=== PATIENT | male | born 1965 | race Caucasian/White ===

== ENCOUNTER → 2017-05-26 | Outpatient (CLI) | payer OTHER ==
[2017-05-26 09:07] LABS: Basophils # (A) 0.1 k/uL (0-0.2); Basophils % (A) 1 %; Eosinophils # (A) 0.1 k/uL (0-0.7); Eosinophils % (A) 1 %; HCT 50.1 % (39.0-53.0); Lymphocytes # (A) 3.6 k/uL (1.0-4.8); Lymphocytes % (A) 42 %; MCH 28.2 pg (25.0-35.0); MCHC 31.9 g/dL (31.0-37.0); MCV 88.4 fL (80.0-100.0); Mean Platelet Volume 6.5; Monocytes # (A) 0.4 k/uL (0-1.0); Monocytes % (A) 5 %; Neutrophils # (A) 4.1 k/uL (1.3-7.7); Neutrophils % (A) 48 %; Platelet Count 244 k/uL (150-450); RBC 5.67 m/uL (4.30-5.90); RDW 11.8 % (11.5-15.5); WBC 8.5 k/uL (3.8-10.6)
[2017-05-26 09:23] LABS: ALT 34 U/L (21-72); AST 25 U/L (17-59); Albumin 4.3 g/dL (3.5-5.0); Alkaline Phosphatase 78 U/L (38-126); Anion Gap 10 mmol/L; Blood Urea Nitrogen 15 mg/dL (9-20); Calcium 9.6 mg/dL (8.4-10.2); Carbon Dioxide 30 mmol/L (22-30); Chloride 102 mmol/L (98-107); Cholesterol 185 mg/dL (<200); Glucose 87 mg/dL (74-99); HDL Cholesterol 53 mg/dL (40-60); LDL Cholesterol,Calculated 108 mg/dL (0-99); Potassium 5.1 mmol/L (3.5-5.1); Sodium 142 mmol/L (137-145); Total Bilirubin 0.4 mg/dL (0.2-1.3); Total Protein 7.1 g/dL (6.3-8.2); Triglycerides 119 mg/dL (<150)
[2017-05-26 09:37] LABS: Amorphous Sediment,Urine Rare /hpf; Appearance,Urine Cloudy (Clear); Bilirubin,Urine Negative (Negative); Blood,Urine Negative (Negative); Color,Urine Yellow; Glucose,Urine (UA) Negative (Negative); Ketones,Urine Negative (Negative); Leukocyte Esterase,Urine Negative (Negative); Mucus,Urine Rare /hpf; Nitrite,Urine Negative (Negative); PH, Urine 7.5 (5.0-8.0); Protein,Urine 2+ (Negative); RBC,Urine 6 /hpf (0-5); Specific Gravity,Urine 1.021 (1.001-1.035); Sperm,Urine Many /hpf; Urobilinogen,Urine <2.0 mg/dL (<2.0)
[2017-05-26 09:52] LABS: Prostate Specific Antigen 0.84 ng/mL (0.00-4.00)
== END | disposition home or self-care (01) ==
LOC: LABWHC1 08:25
PROVIDERS: ATTEND Internal Medicine
DX: I10 Essential (primary) hypertension (principal); Z12.5 Encounter for screening for malignant neoplasm of prostate
CPT/HCPCS: 36415; 80053; 80061; 81001; 84153; 85025

== ENCOUNTER 2020-11-12 14:34 | Emergency (ER) | payer OTHER ==
--- NOTE | 2020-11-12 14:47 | ED ---
General Adult HPI - General Source: patient, RN notes reviewed Mode of arrival: ambulatory Limitations: no limitations <Joe Blackmon - Last Filed: 11/12/20 14:46> - History of Present Illness -: days(s) (2) Severity scale (1-10): 0 Worsens with: movement Associated Symptoms: diaphoresis <Mina Ash - Last Filed: 11/12/20 20:01> - General Stated complaint: dizziness, SOB Time Seen by Provider: 11/12/20 14:46 - History of Present Illness Initial comments: This is a 55-year-old male presents emergency Department chief complaint of dizziness. Patient states the dizziness has been on for over a year but since be worsening and more symptomatic. Patient states that his been having some sweating episodes along with some shortness of breath. Patient states that this is new. Patient has pain in her seatbelt was over his chest but does not believe this chest pain. Denies any nausea vomiting currently. Patient states that his of asthma. For evaluation by his PCP. (Joe Blackmon) 55-year-old male gentleman alert and oriented 4, presents to the emergency room with intermittent dizziness over the past year and shortness of breath for the past couple of days. Patient states that when he goes from kneeling to standing he gets dizzy typically lasts about a minute then resolves. States over the past couple of days he feels very sweaty at times and gets short of breath with exertion. Denies any fevers or sick exposures. He states that he began feeling this way in May when he had Covid. He denies any chest pains. He states that he is supposed to be taking medication for anger management prescribed by Dr Shetty but he doesn't believe he needs it anymore. (Mina Ash) - Related Data Allergies Allergy/AdvReac Type Severity Reaction Status Date / Time diphenhydramine Allergy Unknown Verified 11/12/20 14:49 [From Benadryl] Review of Systems ROS Other: All systems not noted in ROS Statement are negative. <Joe Blackmon - Last Filed: 11/12/20 14:46> ROS Other: All systems not noted in ROS Statement are negative. <Mina Ash - Last Filed: 11/12/20 20:01> ROS Statement: Those systems with pertinent positive or pertinent negative responses have been documented in the HPI. General Exam General appearance: alert, in no apparent distress Head exam: Present: atraumatic, normocephalic, normal inspection Eye exam: Present: normal appearance, PERRL, EOMI. Absent: scleral icterus, conjunctival injection, periorbital swelling ENT exam: Present: normal exam, mucous membranes moist Neck exam: Present: normal inspection, full ROM. Absent: tenderness, meningismus, lymphadenopathy Respiratory exam: Present: normal lung sounds bilaterally. Absent: respiratory distress, wheezes, rales, rhonchi, stridor, chest wall tenderness, accessory muscle use, decreased breath sounds Cardiovascular Exam: Present: regular rate, normal rhythm, normal heart sounds. Absent: systolic murmur, diastolic murmur, rubs, gallop, clicks, JVD GI/Abdominal exam: Present: soft, normal bowel sounds. Absent: distended, tenderness, guarding, rebound, rigid Extremities exam: Present: normal inspection, full ROM, normal capillary refill. Absent: tenderness, pedal edema, joint swelling, calf tenderness Back exam: Present: normal inspection, full ROM. Absent: tenderness, CVA tenderness (R), CVA tenderness (L), muscle spasm, paraspinal tenderness, vertebral tenderness, rash noted Neurological exam: Present: alert, oriented X3, CN II-XII intact Psychiatric exam: Present: normal affect, normal mood Skin exam: Present: warm, dry, intact, normal color. Absent: rash, cyanosis, diaphoretic, erythema, petechiae, pallor, mottled <Mina Ash - Last Filed: 11/12/20 20:01> Course Vital Signs 11/12/20 11/12/20 14:44 17:21 Temperature 98.2 F 98.5 F Pulse Rate 91 72 Respiratory 18 16 Rate Blood Pressure 141/90 144/98 O2 Sat by Pulse 96 98 Oximetry EKG Findings - EKG Results: EKG: sinus rhythm (Ventricular rate of 80, OK interval 0.136, QRS of 0.86, QTC of 0.394) <Mina Ash - Last Filed: 11/12/20 20:01> Medical Decision Making - Lab Data Result diagrams: 11/12/20 14:50 11/12/20 14:50 <Mina Ash Last Filed: 11/12/20 20:01> - Medical Decision Making Patient complaining of dizziness and shortness of breath but denies any fevers, chest pain or cough. CXR shows no pneumothorax, pleural effusion or focal pneumonia. There is mild hyperinflation possible COPD. There is no leukocytosis. d-dimer is negative at 0.41, his troponin is negative at 0.012 and his EKG is normal sinus rhythm with no ST elevation. He does state that his dizziness has been ongoing for a year and worse with position changes. He was instructed to return if any worsening symptoms or chest pain. Patient is agreeable to being discharged and following up with his primary care doctor. Case was discussed with Dr. Ward ([facility]) - Lab Data Lab Results 11/12/20 11/12/20 11/12/20 Range/Units 14:50 14:50 14:50 WBC 8.6 (3.8-10.6) k/uL RBC 5.43 (4.30-5.90) m/uL Hgb 16.0 (13.0-17.5) gm/dL Hct 48.4 (39.0-53.0) % MCV 89.1 (80.0-100.0) fL MCH 29.4 (25.0-35.0) pg MCHC 33.0 (31.0-37.0) g/dL RDW 12.9 (11.5-15.5) % Plt Count 227 (150-450) k/uL MPV 7.5 Neutrophils % 52 % Lymphocytes % 39 % Monocytes % 5 % Eosinophils % 1 % Basophils % 1 % Neutrophils # 4.5 (1.3-7.7) k/uL Lymphocytes # 3.3 (1.0-4.8) k/uL Monocytes # 0.4 (0-1.0) k/uL Eosinophils # 0.1 (0-0.7) k/uL Basophils # 0.1 (0-0.2) k/uL D-Dimer 0.41 (<0.60) mg/L FEU Sodium 138 (137-145) mmol/L Potassium 4.2 (3.5-5.1) mmol/L Chloride 105 (98-107) mmol/L Carbon Dioxide 24 (22-30) mmol/L Anion Gap 9 mmol/L BUN 13 (9-20) mg/dL Creatinine 1.00 (0.66-1.25) mg/dL Est GFR (CKD-EPI)AfAm >90 (>60 ml/min/1.73 sqM) Est GFR (CKD-EPI)NonAf 85 (>60 ml/min/1.73 sqM) Glucose 109 H (74-99) mg/dL Calcium 9.0 (8.4-10.2) mg/dL Magnesium 2.1 (1.6-2.3) mg/dL Total Bilirubin 0.2 (0.2-1.3) mg/dL AST 25 (17-59) U/L ALT 18 (4-49) U/L Alkaline Phosphatase 72 (38-126) U/L Troponin I (0.000-0.034) ng/mL Total Protein 6.3 (6.3-8.2) g/dL Albumin 3.9 (3.5-5.0) g/dL Urine Color Urine Appearance (Clear) Urine pH (5.0-8.0) Ur Specific Howard (1.001-1.035) Urine Protein (Negative) Urine Glucose (UA) (Negative) Urine Ketones (Negative) Urine Blood (Negative) Urine Nitrite (Negative) Urine Bilirubin (Negative) Urine Urobilinogen (<2.0) mg/dL Ur Leukocyte Esterase (Negative) Urine RBC (0-5) /hpf Urine WBC (0-5) /hpf 11/12/20 11/12/20 Range/Units 14:50 15:32 WBC (3.8-10.6) k/uL RBC (4.30-5.90) m/uL Hgb (13.0-17.5) gm/dL Hct (39.0-53.0) % MCV (80.0-100.0) fL MCH (25.0-35.0) pg MCHC (31.0-37.0) g/dL RDW (11.5-15.5) % Plt Count (150-450) k/uL MPV Neutrophils % % Lymphocytes % % Monocytes % % Eosinophils % % Basophils % % Neutrophils # (1.3-7.7) k/uL Lymphocytes # (1.0-4.8) k/uL Monocytes # (0-1.0) k/uL Eosinophils # (0-0.7) k/uL Basophils # (0-0.2) k/uL D-Dimer (<0.60) mg/L FEU Sodium (137-145) mmol/L Potassium (3.5-5.1) mmol/L Chloride (98-107) mmol/L Carbon Dioxide (22-30) mmol/L Anion Gap mmol/L BUN (9-20) mg/dL Creatinine (0.66-1.25) mg/dL Est GFR (CKD-EPI)AfAm (>60 ml/min/1.73 sqM) Est GFR (CKD-EPI)NonAf (>60 ml/min/1.73 sqM) Glucose (74-99) mg/dL Calcium (8.4-10.2) mg/dL Magnesium (1.6-2.3) mg/dL Total Bilirubin (0.2-1.3) mg/dL AST (17-59) U/L ALT (4-49) U/L Alkaline Phosphatase (38-126) U/L Troponin I <0.012 (0.000-0.034) ng/mL Total Protein (6.3-8.2) g/dL Albumin (3.5-5.0) g/dL Urine Color Light Yellow Urine Appearance Clear (Clear) Urine pH 6.5 (5.0-8.0) Ur Specific Howard 1.008 (1.001-1.035) Urine Protein Negative (Negative) Urine Glucose (UA) Negative (Negative) Urine Ketones Negative (Negative) Urine Blood Trace H (Negative) Urine Nitrite Negative (Negative) Urine Bilirubin Negative (Negative) Urine Urobilinogen <2.0 (<2.0) mg/dL Ur Leukocyte Esterase Negative (Negative) Urine RBC 2 (0-5) /hpf Urine WBC <1 (0-5) /hpf Disposition <Joe Blackmon - Last Filed: 11/12/20 14:46> Is patient prescribed a controlled substance at d/c from ED?: No Time of Disposition: 17:07 <Mina Ash - Last Filed: 11/12/20 20:01> Clinical Impression: Postural dizziness Clinical Impression: (Ruled Out): Light-headed feeling Disposition: HOME SELF-CARE Condition: Good Instructions (If sedation given, give patient instructions): Benign Paroxysmal Positional Vertigo (ED) Additional Instructions: Keep your appointment with your primary care doctor on November 22. Return to the emergency room with any increasing shortness of breath or chest pain. Referrals: April Olivera MD [Primary Care Provider] - 1-2 days
[2020-11-12 15:04] LABS: Basophils # (A) 0.1 k/uL (0-0.2); Basophils % (A) 1 %; Eosinophils # (A) 0.1 k/uL (0-0.7); Eosinophils % (A) 1 %; HCT 48.4 % (39.0-53.0); Lymphocytes # (A) 3.3 k/uL (1.0-4.8); Lymphocytes % (A) 39 %; MCH 29.4 pg (25.0-35.0); MCV 89.1 fL (80.0-100.0); Mean Platelet Volume 7.5; Monocytes # (A) 0.4 k/uL (0-1.0); Monocytes % (A) 5 %; Neutrophils # (A) 4.5 k/uL (1.3-7.7); Neutrophils % (A) 52 %; Platelet Count 227 k/uL (150-450); RBC 5.43 m/uL (4.30-5.90); RDW 12.9 % (11.5-15.5); WBC 8.6 k/uL (3.8-10.6)
[2020-11-12] MEDS ORDERED: SODIUM CHLORIDE 0.9% 500 ML 500 ML IV STA (15:10)
[2020-11-12 15:14] LABS: ALT 18 U/L (4-49); AST 25 U/L (17-59); African American GFR (CKD) >90 (>60 ml/min/1.73 sqM); Albumin 3.9 g/dL (3.5-5.0); Alkaline Phosphatase 72 U/L (38-126); Anion Gap 9 mmol/L; Blood Urea Nitrogen 13 mg/dL (9-20); Carbon Dioxide 24 mmol/L (22-30); Chloride 105 mmol/L (98-107); Glucose 109 mg/dL (74-99); Magnesium 2.1 mg/dL (1.6-2.3); Non-African American GFR(CKD) 85 (>60 ml/min/1.73 sqM); Potassium 4.2 mmol/L (3.5-5.1); Sodium 138 mmol/L (137-145); Total Bilirubin 0.2 mg/dL (0.2-1.3); Total Protein 6.3 g/dL (6.3-8.2)
[2020-11-12 15:56] LABS: Appearance,Urine Clear (Clear); Bilirubin,Urine Negative (Negative); Blood,Urine Trace (Negative); Color,Urine Light Yellow; Glucose,Urine (UA) Negative (Negative); Ketones,Urine Negative (Negative); Leukocyte Esterase,Urine Negative (Negative); Nitrite,Urine Negative (Negative); PH, Urine 6.5 (5.0-8.0); Protein,Urine Negative (Negative); RBC,Urine 2 /hpf (0-5); Specific Gravity,Urine 1.008 (1.001-1.035); Urobilinogen,Urine <2.0 mg/dL (<2.0); WBC,Urine <1 /hpf (0-5)
--- NOTE | 2020-11-12 15:56 | XR ---
EXAMINATION TYPE: XR chest 2V DATE OF EXAM: 11/12/2020 COMPARISON: NONE TECHNIQUE: PA and lateral views submitted. HISTORY: Shortness of breath FINDINGS: The lungs are clear and there is no pneumothorax, pleural effusion, or focal pneumonia. Heart size normal. No overt failure. Arthropathy of the shoulders. Hypertrophic and degenerative change of the s pine. Mild hyperinflation. IMPRESSION: 1. Correlate for mild COPD..
[2020-11-12 17:23] VITALS: BP 144/98; PULSE 72; RESP 16; TEMP 98.5
== END 2020-11-12 17:20 | disposition home or self-care (01) ==
LOC: EC 14:34
DX: R42 Dizziness and giddiness (principal); R06.02 Shortness of breath; R61 Generalized hyperhidrosis; J45.909 Unspecified asthma, uncomplicated; Z88.8 Allergy status to other drugs, medicaments and biological substances
CPT/HCPCS: 36415; 71046; 80053; 81001; 83735; 84484; 85025; 85379; 93005; 99285

== ENCOUNTER → 2023-10-15 | Outpatient (CLI) | payer OTHER ==
--- NOTE | 2023-10-19 13:11 | XR ---
EXAMINATION TYPE: XR lumbar spine 2 or 3V DATE OF EXAM: 10/15/2023 COMPARISON: None HISTORY: Radiculopathy TECHNIQUE: Three-view lumbar spine FINDINGS: There are 5 lumbar-type vertebral bodies. Pedicles are intact. There is loss of disc height at L4-5 and L5-S1. Large anterior osteophytes are present L3-4 and L2-3. Lower thoracic anterior ost eophytes are also present. IMPRESSION: 1. Degenerative disc changes lower lumbar spine. 2. Spondylosis lower thoracic and lumbar spine
--- NOTE | 2023-10-19 13:14 | XR ---
EXAMINATION TYPE: XR cervical spine w flex/ext DATE OF EXAM: 10/15/2023 COMPARISON: None HISTORY: Cervical spondylosis TECHNIQUE: 5 view cervical spine FINDINGS: Foraminal stenosis present C3-4 bilaterally. Some foraminal stenosis is also present C5-6 b ilaterally. Disc space. This is present C5-6 C6-7. Posterior spinal lamellar line is intact. Preverte bral space is normal. In flexion and extension views no spondylolisthesis is evident. Odontoid within the [id number] is normal. Tip has limitation due to occiput. IMPRESSION: 1. Foraminal narrowing C3-4 and C5-6 bilaterally. 2. Degenerative disc changes C5-6 C6-7. 3. Alignment is preserved through flexion and extension and neutral positions.
== END | disposition home or self-care (01) ==
LOC: RADXRMAIN 14:16
PROVIDERS: ATTEND Internal Medicine
DX: M47.22 Other spondylosis with radiculopathy, cervical region (principal); M47.26 Other spondylosis with radiculopathy, lumbar region; M51.16 Intervertebral disc disorders with radiculopathy, lumbar region
CPT/HCPCS: 72052; 72100

== ENCOUNTER → 2023-11-02 | Outpatient (CLI) | payer OTHER ==
--- NOTE | 2023-11-26 09:15 | CTL ---
Patient: Joe Lira G Ordering Physician: Unknown, Unknown ID: [id number] Phone, Pager: Phone: N/A Pager: N/A : 1965 Age/Gender: 58Y, M Primary Location: N/A Procedure: CT LOW DOSE LUNG CA NCER SCREENING Study Date: 11/02/2023 6:55:49 AM EXAMINATION TYPE: CT Low Dose Lung DATE OF EXAM: 11/17/2023 12:48 PM CLINICAL INDICATION: personal hx of nicotine dependence 1ppd X 22 years not current smoker COMPARISON: None. TECHNIQUE: Multiple axial non-contrast scans were obtained from approximately the lung apices through the upper abdomen. Coronal and sagittal reformatted images were obtained. Low dose technique was uti lized. CT DLP: 92.1 mGycm, Automated exposure control for dose reduction was used. CT Contrast: Contrast used: None Oral contrast used: None FINDINGS: ======== Lack of intravenous contrast and low dose technique limits the evaluation of the vascular and soft ti ssue structures. LUNGS: No evidence of pulmonary fibrosis. No evidence of focal consolidation, pneumothorax or pleural effusion. Centrilobular emphysema changes. Nodules: RUL: None. RML: None. RLL: None. HORTENCIA: None. LLL: None. AIRWAY: Patent and unremarkable. HEART: Size within normal limits. MEDIASTINUM: No gross evidence of adenopathy. VASCULATURE: No aortic aneurysm. MUSCULOSKELETAL: No acute osseous abnormalities SOFT TISSUES/LYMPH NODES: Unremarkable. LOWER NECK: No significant findings. UPPER ABDOMEN: No significant findings. IMPRESSION: 1. No clinically significant pulmonary nodules. 2. Mild emphysema. CT LUNG RAD AND CT CHEST RECOMMENDATION: Lung-Rad 2 Benign Appearance or Behavior: Continue annual sc reening with LDCT in 12 months. S Modifier (other clinically significant findings): None Recommend smoking cessation (if current smoker), or continuation of smoking cessation (if prior smoke r). Annual screening for lung cancer with low-dose computed tomography is recommended in adults ages 55 to 77 years who have a 30 pack-year smoking history and currently smoke or have quit within the pa st 15 years. Screening should be discontinued once a person has not smoked for 15 years or develops a health problem that substantially limits life expectancy or the ability or willingness to have curat erik lung surgery. Lung rads 2021 [email or web address]
== END | disposition home or self-care (01) ==
LOC: RADCTMAIN 06:53
PROVIDERS: ATTEND Internal Medicine
DX: J43.9 Emphysema, unspecified (principal); Z12.2 Encounter for screening for malignant neoplasm of respiratory organs; Z87.891 Personal history of nicotine dependence
CPT/HCPCS: 71271

== ENCOUNTER → 2023-11-02 | Outpatient (CLI) | payer OTHER ==
--- NOTE | 2023-11-24 10:07 | US ---
EXAMINATION TYPE: US carotid duplex BILAT DATE OF EXAM: 11/24/2023 COMPARISON: NONE CLINICAL INDICATION: Male, 58 years old with history of I65.23 CAROTID STENOSIS J46.9 COPD; Rule out stenosis TECHNIQUE: Carotid duplex ultrasound examination. Indirect Doppler criteria was utilized. FINDINGS: EXAM MEASUREMENTS: RIGHT: Peak Systolic Velocity (PSV) cm/sec ----- Right CCA: 87.6 ----- Right ICA: 58.8 ----- Right ECA: 88.5 ICA/CCA ratio: 0.67 RIGHT: End Diastole cm/sec ----- Right CCA: 12.6 ----- Right ICA: 7.9 ----- Right ECA: 15.2 LEFT: Peak Systolic Velocity (PSV) cm/sec ----- Left CCA: 59.0 ----- Left ICA: 60.4 ----- Left ECA: 65.9 ICA/CCA ratio: 1.0 LEFT: End Diastole cm/sec ----- Left CCA: 16.2 ----- Left ICA: 24.6 ----- Left ECA: 8.85 VERTEBRALS (direction of flow): Right Vertebral: Antegrade Left Vertebral: Antegrade Rhythm: Normal PRINCIPAL DEVELOPER NOTES: No significantly elevated velocities seen. No plaque seen IMPRESSION: Less than 50% stenosis of the bilateral carotid bifurcations.
== END | disposition home or self-care (01) ==
LOC: RADUSWWP 07:10
PROVIDERS: ATTEND Internal Medicine
DX: I65.23 Occlusion and stenosis of bilateral carotid arteries (principal); Z87.891 Personal history of nicotine dependence; J44.9 Chronic obstructive pulmonary disease, unspecified; R91.1 Solitary pulmonary nodule; M47.22 Other spondylosis with radiculopathy, cervical region; M47.816 Spondylosis without myelopathy or radiculopathy, lumbar region
CPT/HCPCS: 93880

== ENCOUNTER → 2023-12-01 | Outpatient (CLI) | payer OTHER ==
--- NOTE | 2023-12-01 16:50 | XR ---
EXAMINATION TYPE: XR elbow limited RT DATE OF EXAM: 12/01/2023 2:55 PM CLINICAL INDICATION: Male, 58 years old with history of M25.521 PAIN IN RT ELBOW; [facility] COMPARISON: None TECHNIQUE: XR elbow limited RT; elbow was examined in AP, lateral, and oblique projections. FINDINGS: No evidence of any acute osseous pathology, joint dislocation, or soft tissue swelling is n oted. No evidence of joint effusion is present. IMPRESSION: No evidence of acute fracture.
== END | disposition home or self-care (01) ==
LOC: RADXRMAIN 14:35
PROVIDERS: ATTEND Internal Medicine
DX: M25.521 Pain in right elbow (principal)